=== PATIENT | male | born 1930 | race Caucasian/White ===

== ENCOUNTER 2017-11-17 13:46 | Inpatient (IN) | payer MEDICARE, BC ==
[2017-11-17] MEDS ORDERED: Sodium Chloride 0.9% 1,000 ML IV ONE ×3 (13:57→17:30)
[2017-11-17] MEDS ORDERED: Acetaminophen 325 MG Tab PO ONE (14:06)
--- NOTE | 2017-11-17 14:11 | EDM.PDOC ---
ED HPI GENERAL MEDICAL PROBLEM - General Chief Complaint: General Stated Complaint: AMB Time Seen by Provider: 11/17/17 14:00 Source of Information: Reports: Patient History Limitations: Reports: No Limitations - History of Present Illness INITIAL COMMENTS - FREE TEXT/NARRATIVE: HISTORY AND PHYSICAL: History of present illness: Patient is an 87-year-old male who presents to the emergency room today with complaints of weakness. 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 Today he was complaining of increased weakness and was unable to help assist his with her ADLs. called EMS who transported patient to our emergency room. EMS states that he was drowsy appearing and very weak upon their arrival. Was hypotensive with a BP of 90/50's. He did receive a 500 normal saline bolus enroute and appeared to "perk up" during the drive here. Upon arrival patient is alert and oriented, states he feels improved after receiving the IV fluids. Past medical history of hypertension, elevated cholesterol, coronary artery bipass, and pacemaker. Review of systems: As per history of present illness and below otherwise all systems reviewed and negative. Past medical history: As per history of present illness and as reviewed below otherwise noncontributory. Surgical history: As per history of present illness and as reviewed below otherwise noncontributory. Social history: No reported history of drug or alcohol abuse. Family history: As per history of present illness and as reviewed below otherwise noncontributory. Physical exam: General: Well developed and well nourished 87 year old male. Alert and orientated. Nontoxic-appearing and in no acute distress. HEENT: Atraumatic, normocephalic, pupils equal and reactive bilaterally, negative for conjunctival pallor or scleral icterus, mucous membranes moist, throat clear, neck supple, nontender, trachea midline. No drooling or trismus noted. No meningeal signs Lungs: Clear to auscultation, breath sounds equal bilaterally, chest nontender. Heart: S1S2, regular rate and rhythm without overt murmur Abdomen: Soft, nondistended, nontender. Negative for masses or hepatosplenomegaly. Negative for costovertebral tenderness. Pelvis: Stable nontender. Genitourinary: Deferred. Rectal: Deferred. Skin: Intact, warm, dry. No lesions or rashes noted. Extremities: Atraumatic, negative for cords or calf pain. Neurovascular unremarkable. Neuro: Awake, alert, oriented. Cranial nerves II through XII unremarkable. Cerebellum unremarkable. Motor and sensory unremarkable throughout. Exam nonfocal. Notes: Patient is alert and oriented. Family is at bedside. Patient lives in [place] and is the primary caregiver of his who is wheelchair bound. He reports that he is normally able to help her with her ADLs. Family does routinely check on them. All nursing staff was assisting the patient to stand to obtain a urine sample he does appear weak and requires full assistance. He reports "normally not this week". He does complain that he has had increased difficulty with urination; starting his stream. Urine sample was obtained and sent to lab. Blood pressure remains low, asymptomatic, IV fluids are running. We'll continue to monitor. 1520: WBC 24.75; blood cultures have already been obtained, No clear source at this time - abx ordered. 1540: Urine shows 4-5 wbc's with few bacteria, urine culture added. Chest x-ray shows linear atelectasis at the lung bases. My viewing it looks like an infiltrate of the left lower lobe. Lactic acid results pending. 1545: Dr. Nelson was consulted on this case for admission. He is agreeable to keeping this patient in the ICU for admission. Continue to monitor blood pressure through transfer to ICU bed. Patient's blood pressure remains low; 76/ 40 - will start Norepinephrine IV per protocol. Dr Nelson was informed on this. He is requesting anesthesia be consulted to insert a central line. Anesthesia was consulted. Diagnostics: CBC, CMP, UA, troponin, EKG, one view chest x-ray, blood cultures, urine culture Therapeutics: IV fluids, Zosyn, Vancomycin, Norephinephrine IV Impression: UTI R/O sepsis Hypotension Left lung infiltrate Plan: ICU inpatient for further care/management per Dr Nelson Definitive disposition and diagnosis as appropriate pending reevaluation and review of above. Onset: Today Duration: Hour(s): Treatments TONE ARTIST APPRENTICE: Reports: IV/IO, Oxygen Other Treatments TONE ARTIST APPRENTICE: NS 600 ml - Related Data Allergies Allergy/AdvReac Type Severity Reaction Status Date / Time No Known Allergies Allergy Verified 11/17/17 13:56 Home Meds: Home Meds Atenolol 25 mg PO BEDTIME 11/17/17 [History] Simvastatin [Zocor] 80 mg PO DAILY 11/17/17 [History] ED ROS GENERAL - Review of Systems Review Of Systems: ROS reveals no pertinent complaints other than HPI. ED EXAM, GENERAL - Physical Exam Exam: See Below (See dictation) Course - Vital Signs Last Recorded V/S: Last Vital Signs Temp 101.0 F H 11/17/17 15:15 Pulse 70 11/17/17 16:01 Resp 16 11/17/17 16:01 BP 81/41 L 11/17/17 16:01 Pulse Ox 94 L 11/17/17 16:01 - Orders/Labs/Meds Orders: Active Orders 24 hr Category Date Time Status Admission Status [Patient Status] [ADT] Stat ADT 11/17/17 15:45 Active EKG Documentation Completion [RC] STAT Care 11/17/17 13:57 Active Orthostatic Vital Signs [RC] ASDIRECTED Care 11/17/17 13:57 Active Chest 1V Frontal [CR] Stat Exams 11/17/17 13:57 Taken Head wo Cont [CT] Stat Exams 11/17/17 13:57 Taken CULTURE BLOOD [BC] Stat Lab 11/17/17 14:48 Received CULTURE BLOOD [BC] Stat Lab 11/17/17 15:49 Ordered CULTURE URINE [RM] Stat Lab 11/17/17 15:49 Ordered UA W/MICROSCOPIC [URIN] Stat Lab 11/17/17 15:05 Ordered Norepinephrine Bit/0.9 % NaCl [Norepinephr-0.9% NaCl 4 Med 11/17/17 16:15 Active mg/250] 4 mg in 250 ml IV TITRATE Sodium Chloride 0.9% [Normal Saline] 1,000 ml Med 11/17/17 15:18 Active IV .BOLUS Vancomycin [Vancocin] 1 gm Med 11/17/17 15:22 Active Sodium Chloride 0.9% [Normal Saline] 250 ml IV ONETIME Blood Culture x2 Reflex Set [OM.PC] Stat Oth 11/17/17 15:49 Ordered Medication Orders Sodium Chloride (Normal Saline) 1,000 mls @ 999 mls/hr IV .BOLUS ONE Stop: 11/17/17 16:18 Last Admin: 11/17/17 15:19 Dose: 999 mls/hr Vancomycin HCl 1 gm/ Sodium (Chloride) 250 mls @ 166 mls/hr IV ONETIME ONE Stop: 11/17/17 16:52 Last Admin: 11/17/17 15:49 Dose: 166 mls/hr Norepinephrine Bitartrate (Norepinephr-0.9% Nacl 4 Mg/250) 4 mg in 250 mls @ 7.5 mls/hr IV TITRATE LAN; Protocol Labs: Laboratory Tests 11/17/17 11/17/17 11/17/17 Range/Units 14:48 14:48 15:05 WBC 24.75 H (4.0-11.0) K/uL RBC 4.93 (4.50-5.90) M/uL Hgb 15.1 (13.0-17.0) g/dL Hct 44.5 (38.0-50.0) % MCV 90.3 (80.0-98.0) fL MCH 30.6 (27.0-32.0) pg MCHC 33.9 (31.0-37.0) g/dL RDW Std Deviation 44.4 (28.0-62.0) fl RDW Coeff of Elodia 14 (11.0-15.0) % Plt Count 205 (150-400) K/uL MPV 9.80 (7.40-12.00) fL Neut % (Auto) 89.6 H (48.0-80.0) % Lymph % (Auto) 3.2 L (16.0-40.0) % Schleicher % (Auto) 7.1 (0.0-15.0) % Eos % (Auto) 0.0 (0.0-7.0) % Baso % (Auto) 0.1 (0.0-1.5) % Neut # (Auto) 22.2 H (1.4-5.7) K/uL Lymph # (Auto) 0.8 (0.6-2.4) K/uL Schleicher # (Auto) 1.8 H (0.0-0.8) K/uL Eos # (Auto) 0.0 (0.0-0.7) K/uL Baso # (Auto) 0.0 (0.0-0.1) K/uL Nucleated RBC % 0.0 /100WBC Nucleated RBCs # 0 K/uL Lactate (0.20-2.00) mmol/L Sodium 139 (136-148) mmol/L Potassium 4.2 (3.5-5.1) mmol/L Chloride 105 (98-107) mmol/L Carbon Dioxide 23.7 (21.0-32.0) mmol/L BUN 20 H (7.0-18.0) mg/dL Creatinine 1.3 (0.8-1.3) mg/dL Est Cr Clr Drug Dosing 38.73 mL/min Estimated GFR (MDRD) 52.2 ml/min Glucose 117 H (74-106) mg/dL Calcium 8.8 (8.5-10.1) mg/dL Total Bilirubin 0.9 (0.2-1.0) mg/dL AST 19 (15-37) IU/L ALT 20 (14-63) IU/L Alkaline Phosphatase 29 L (46-116) U/L Troponin I < 0.050 (0.000-0.056) ng/mL Total Protein 6.8 (6.4-8.2) g/dL Albumin 3.3 L (3.4-5.0) g/dL Globulin 3.5 (2.0-3.5) g/dL Albumin/Globulin Ratio 0.9 L (1.3-2.8) Urine Color YELLOW Urine Appearance CLEAR Urine pH 5.5 (5.0-8.0) Ur Specific [place] >= 1.030 (1.001-1.035) Urine Protein TRACE (NEGATIVE) mg/dL Urine Glucose (UA) NEGATIVE (NEGATIVE) mg/dL Urine Ketones 15 H (NEGATIVE) mg/dL Urine Occult Blood LARGE H (NEGATIVE) Urine Nitrite NEGATIVE (NEGATIVE) Urine Bilirubin SMALL H (NEGATIVE) Urine Ictotest NEGATIVE Urine Urobilinogen 1.0 (<2.0) EU/dL Ur Leukocyte Esterase TRACE (NEGATIVE) Urine RBC 15-20 (0-2/HPF) Urine WBC 4-8 (0-5/HPF) Ur Epithelial Cells RARE (NONE-FEW) Urine Bacteria FEW (NEGATIVE) Urine Mucus MODERATE (NONE-MOD) 11/17/17 Range/Units 15:39 WBC (4.0-11.0) K/uL RBC (4.50-5.90) M/uL Hgb (13.0-17.0) g/dL Hct (38.0-50.0) % MCV (80.0-98.0) fL MCH (27.0-32.0) pg MCHC (31.0-37.0) g/dL RDW Std Deviation (28.0-62.0) fl RDW Coeff of Elodia (11.0-15.0) % Plt Count (150-400) K/uL MPV (7.40-12.00) fL Neut % (Auto) (48.0-80.0) % Lymph % (Auto) (16.0-40.0) % Schleicher % (Auto) (0.0-15.0) % Eos % (Auto) (0.0-7.0) % Baso % (Auto) (0.0-1.5) % Neut # (Auto) (1.4-5.7) K/uL Lymph # (Auto) (0.6-2.4) K/uL Schleicher # (Auto) (0.0-0.8) K/uL Eos # (Auto) (0.0-0.7) K/uL Baso # (Auto) (0.0-0.1) K/uL Nucleated RBC % /100WBC Nucleated RBCs # K/uL Lactate 1.2 (0.20-2.00) mmol/L Sodium (136-148) mmol/L Potassium (3.5-5.1) mmol/L Chloride (98-107) mmol/L Carbon Dioxide (21.0-32.0) mmol/L BUN (7.0-18.0) mg/dL Creatinine (0.8-1.3) mg/dL Est Cr Clr Drug Dosing mL/min Estimated GFR (MDRD) ml/min Glucose (74-106) mg/dL Calcium (8.5-10.1) mg/dL Total Bilirubin (0.2-1.0) mg/dL AST (15-37) IU/L ALT (14-63) IU/L Alkaline Phosphatase (46-116) U/L Troponin I (0.000-0.056) ng/mL Total Protein (6.4-8.2) g/dL Albumin (3.4-5.0) g/dL Globulin (2.0-3.5) g/dL Albumin/Globulin Ratio (1.3-2.8) Urine Color Urine Appearance Urine pH (5.0-8.0) Ur Specific [place] (1.001-1.035) Urine Protein (NEGATIVE) mg/dL Urine Glucose (UA) (NEGATIVE) mg/dL Urine Ketones (NEGATIVE) mg/dL Urine Occult Blood (NEGATIVE) Urine Nitrite (NEGATIVE) Urine Bilirubin (NEGATIVE) Urine Ictotest Urine Urobilinogen (<2.0) EU/dL Ur Leukocyte Esterase (NEGATIVE) Urine RBC (0-2/HPF) Urine WBC (0-5/HPF) Ur Epithelial Cells (NONE-FEW) Urine Bacteria (NEGATIVE) Urine Mucus (NONE-MOD) Meds: Medications Generic Name Dose Route Start Last Admin Trade Name Freq PRN Reason Stop Dose Admin Sodium Chloride 1,000 mls @ 999 mls/hr 11/17/17 15:18 11/17/17 15:19 Normal Saline IV 11/17/17 16:18 999 mls/hr .BOLUS ONE Administration Vancomycin HCl 1 gm/ Sodium 250 mls @ 166 mls/hr 11/17/17 15:22 11/17/17 15: 49 Chloride IV 11/17/17 16:52 166 mls/hr ONETIME ONE Administration Norepinephrine Bitartrate 4 mg in 250 mls @ 7.5 mls/hr 11/17/17 16:15 Norepinephr-0.9% Nacl 4 Mg/250 IV TITRATE LAN Protocol 2 MCG/MIN Discontinued Medications Generic Name Dose Route Start Last Admin Trade Name Sarah PRN Reason Stop Dose Admin Acetaminophen 650 mg 11/17/17 14:06 11/17/17 14:34 Tylenol PO 11/17/17 14:07 650 mg NOW ONE Administration Sodium Chloride 1,000 mls @ 500 mls/hr 11/17/17 13:57 11/17/17 14:00 Normal Saline IV 11/17/17 15:56 500 mls/hr STAT ONE Administration Piperacillin Sod/Tazobactam 50 mls @ 100 mls/hr 11/17/17 15:22 11/17/17 15:47 Sod 3.375 gm/ Sodium Chloride IV 11/17/17 15:51 100 mls/hr ONETIME ONE Administration Departure - Departure Time of Disposition: 15:47 Disposition: Admitted As Inpatient 66 Clinical Impression: Pulmonary infiltrate in left lung on chest x-ray UTI (urinary tract infection) Qualifiers: Urinary tract infection type: acute cystitis Hematuria presence: with hematuria Qualified Code(s): N30.01 - Acute cystitis with hematuria Hypotension Qualifiers: Hypotension type: unspecified hypotension type Qualified Code(s): I95.9 - Hypotension, unspecified - Discharge Information Forms: ED Department Discharge - My Orders Last 24 Hours: My Active Orders 11/17/17 13:57 EKG Documentation Completion [RC] STAT Orthostatic Vital Signs [RC] ASDIRECTED Chest 1V Frontal [CR] Stat Head wo Cont [CT] Stat 11/17/17 14:48 CULTURE BLOOD [BC] Stat 11/17/17 15:05 UA W/MICROSCOPIC [URIN] Stat 11/17/17 15:18 Sodium Chloride 0.9% [Normal Saline] 1,000 ml IV .BOLUS 11/17/17 15:22 Vancomycin [Vancocin] 1 gm Sodium Chloride 0.9% [Normal Saline] 250 ml IV ONETIME 11/17/17 15:45 Admission Status [Patient Status] [ADT] Stat 11/17/17 15:49 CULTURE BLOOD [BC] Stat CULTURE URINE [RM] Stat Blood Culture x2 Reflex Set [OM.PC] Stat 11/17/17 16:15 Norepinephrine Bit/0.9 % NaCl [Norepinephr-0.9% NaCl 4 mg/250] 4 mg in 250 ml IV TITRATE - Assessment/Plan Last 24 Hours: My Active Orders 11/17/17 13:57 EKG Documentation Completion [RC] STAT Orthostatic Vital Signs [RC] ASDIRECTED Chest 1V Frontal [CR] Stat Head wo Cont [CT] Stat 11/17/17 14:48 CULTURE BLOOD [BC] Stat 11/17/17 15:05 UA W/MICROSCOPIC [URIN] Stat 11/17/17 15:18 Sodium Chloride 0.9% [Normal Saline] 1,000 ml IV .BOLUS 11/17/17 15:22 Vancomycin [Vancocin] 1 gm Sodium Chloride 0.9% [Normal Saline] 250 ml IV ONETIME 11/17/17 15:45 Admission Status [Patient Status] [ADT] Stat 11/17/17 15:49 CULTURE BLOOD [BC] Stat CULTURE URINE [RM] Stat Blood Culture x2 Reflex Set [OM.PC] Stat 11/17/17 16:15 Norepinephrine Bit/0.9 % NaCl [Norepinephr-0.9% NaCl 4 mg/250] 4 mg in 250 ml IV TITRATE
[2017-11-17] MEDS ORDERED: Piperacillin/Tazobactam 3.375 GM in Sodium Chloride 0.9% 50 ML IV ONE (15:22)
[2017-11-17 15:27] LABS: CHLORIDE,CL 105 mmol/L (98-107); SODIUM,NA 139 mmol/L (136-148)
--- NOTE | 2017-11-17 16:08 | PCM.HP ---
H&P History of Present Illness - General Date of Service: 11/17/17 Admit Problem/Dx: Admission Diagnosis/Problem Admission Diagnosis/Problem UTI, Urinary tract infectious disease Source of Information: Patient, Family History Limitations: Reports: No Limitations - History of Present Illness Initial Comments - Free Text/Narative: 87 yo male with history of CAD, M.I s/p CABG & TV Pacer & HLD is admitted for septic shock. He presented to the ED with weakness that began earlier this morning. His only other associated symptom was feeling warm. Prior to this he denies any other symptoms or recent illnesses and stated he was healthy up until today. He lives at home with his who is wheelchair bound and he takes care of her. He does not have a PCP and has not seen one in 3 years. He does see Dr[address] Ritchie divemaster in [place] and states he last saw him 1-2 years ago. He denies use of tobacco. He denies any recent hospitalizations. In the Ed he presented with fever, bp ranging 60s-90s/40s-60s and was found to have Leukocytosis with WBC count 24k. His UA revealed Trace LE, 4-8 WBC, positive bacteria, + blood. CXR revealed atelectasis with questionable LLL infiltrate. Blood cultures obtained in ED and urine sent for culture He received IV NS 2L in ED, and was started on 3rd L. He was started on Zosyn and Vanco in ED. He received hydrocortisone 100 mg IV single dose. He was started on Levophed and anesthesia was consulted for central line. - Related Data Allergies/Adverse Reactions: Allergies Allergy/AdvReac Type Severity Reaction Status Date / Time No Known Allergies Allergy Verified 11/17/17 13:56 Home Medications: Home Meds Atenolol 25 mg PO BEDTIME 11/17/17 [History] Simvastatin [Zocor] 80 mg PO DAILY 11/17/17 [History] Past Medical History Cardiovascular History: Reports: High Cholesterol, Hypertension - Infectious Disease History Infectious Disease History: Reports: None - Past Surgical History Cardiovascular Surgical History: Reports: Coronary Artery Bypass Social & Family History - Family History Family Medical History: Noncontributory - Tobacco Use Smoking Status *Q: Former Smoker Used Tobacco, but Quit: Yes Month/Year Tobacco Last Used: 1947 - Caffeine Use Caffeine Use: Reports: Coffee - Alcohol Use Days Per Week of Alcohol Use: 1 Number of Drinks Per Day: 1 Total Drinks Per Week: 1 Date of Last Drink: 11/16/17 - Recreational Drug Use Recreational Drug Use: No H&P Review of Systems - Review of Systems: Review Of Systems: See Below General: Reports: Weakness HEENT: Reports: No Symptoms Pulmonary: Reports: No Symptoms Cardiovascular: Reports: No Symptoms Gastrointestinal: Reports: No Symptoms Genitourinary: Reports: No Symptoms Musculoskeletal: Reports: No Symptoms Skin: Reports: No Symptoms Psychiatric: Reports: No Symptoms Neurological: Reports: No Symptoms Hematologic/Lymphatic: Reports: No Symptoms Immunologic: Reports: No Symptoms Exam - Exam Exam: See Below - Vital Signs Vital Signs: Last Vital Signs Temp 38.3 C H 11/17/17 15:15 Pulse 70 11/17/17 16:01 Resp 16 11/17/17 16:01 BP 81/41 L 11/17/17 16:01 Pulse Ox 94 L 11/17/17 16:01 Weight: 79.379 kg - Exam Quality Assessment: Supplemental Oxygen General: Alert, Oriented, Cooperative, Other (no distress ) HEENT: Conjunctiva Clear, EACs Clear, EOMI, Nares Patent, Normal Nasal Septum, Posterior Pharynx Clear, Pupils Equal, Pupils Reactive Neck: Supple, Trachea Midline Lungs: Clear to Auscultation, Normal Respiratory Effort Cardiovascular: Regular Rate, Regular Rhythm GI/Abdominal Exam: Normal Bowel Sounds, Soft, Non-Tender, No Organomegaly, No Distention Back Exam: Normal Inspection Extremities: Normal Inspection, Normal Range of Motion, Non-Tender, No Pedal Edema Peripheral Pulses: 1+: Dorsalis Pedis (L), Dorsalis Pedis (R) Skin: Warm, Dry, Intact Neurological: Cranial Nerves Intact Neuro Extensive - Mental Status: Alert, Oriented x3, Normal Mood/Affect Psychiatric: Alert, Normal Affect, Normal Mood - Patient Data Lab Results Last 24 hrs: Laboratory Results - last 24 hr 11/17/17 11/17/17 11/17/17 Range/Units 14:48 14:48 15:05 WBC 24.75 H (4.0-11.0) K/uL RBC 4.93 (4.50-5.90) M/uL Hgb 15.1 (13.0-17.0) g/dL Hct 44.5 (38.0-50.0) % MCV 90.3 (80.0-98.0) fL MCH 30.6 (27.0-32.0) pg MCHC 33.9 (31.0-37.0) g/dL RDW Std Deviation 44.4 (28.0-62.0) fl RDW Coeff of Elodia 14 (11.0-15.0) % Plt Count 205 (150-400) K/uL MPV 9.80 (7.40-12.00) fL Neut % (Auto) 89.6 H (48.0-80.0) % Lymph % (Auto) 3.2 L (16.0-40.0) % Brooke % (Auto) 7.1 (0.0-15.0) % Eos % (Auto) 0.0 (0.0-7.0) % Baso % (Auto) 0.1 (0.0-1.5) % Neut # (Auto) 22.2 H (1.4-5.7) K/uL Lymph # (Auto) 0.8 (0.6-2.4) K/uL Brooke # (Auto) 1.8 H (0.0-0.8) K/uL Eos # (Auto) 0.0 (0.0-0.7) K/uL Baso # (Auto) 0.0 (0.0-0.1) K/uL Nucleated RBC % 0.0 /100WBC Nucleated RBCs # 0 K/uL Lactate (0.20-2.00) mmol/L Sodium 139 (136-148) mmol/L Potassium 4.2 (3.5-5.1) mmol/L Chloride 105 (98-107) mmol/L Carbon Dioxide 23.7 (21.0-32.0) mmol/L BUN 20 H (7.0-18.0) mg/dL Creatinine 1.3 (0.8-1.3) mg/dL Est Cr Clr Drug Dosing 38.73 mL/min Estimated GFR (MDRD) 52.2 ml/min Glucose 117 H (74-106) mg/dL Calcium 8.8 (8.5-10.1) mg/dL Total Bilirubin 0.9 (0.2-1.0) mg/dL AST 19 (15-37) IU/L ALT 20 (14-63) IU/L Alkaline Phosphatase 29 L (46-116) U/L Troponin I < 0.050 (0.000-0.056) ng/mL Total Protein 6.8 (6.4-8.2) g/dL Albumin 3.3 L (3.4-5.0) g/dL Globulin 3.5 (2.0-3.5) g/dL Albumin/Globulin Ratio 0.9 L (1.3-2.8) Urine Color YELLOW Urine Appearance CLEAR Urine pH 5.5 (5.0-8.0) Ur Specific [place] >= 1.030 (1.001-1.035) Urine Protein TRACE (NEGATIVE) mg/dL Urine Glucose (UA) NEGATIVE (NEGATIVE) mg/dL Urine Ketones 15 H (NEGATIVE) mg/dL Urine Occult Blood LARGE H (NEGATIVE) Urine Nitrite NEGATIVE (NEGATIVE) Urine Bilirubin SMALL H (NEGATIVE) Urine Ictotest NEGATIVE Urine Urobilinogen 1.0 (<2.0) EU/dL Ur Leukocyte Esterase TRACE (NEGATIVE) Urine RBC 15-20 (0-2/HPF) Urine WBC 4-8 (0-5/HPF) Ur Epithelial Cells RARE (NONE-FEW) Urine Bacteria FEW (NEGATIVE) Urine Mucus MODERATE (NONE-MOD) 11/17/17 Range/Units 15:39 WBC (4.0-11.0) K/uL RBC (4.50-5.90) M/uL Hgb (13.0-17.0) g/dL Hct (38.0-50.0) % MCV (80.0-98.0) fL MCH (27.0-32.0) pg MCHC (31.0-37.0) g/dL RDW Std Deviation (28.0-62.0) fl RDW Coeff of [place]odia (11.0-15.0) % Plt Count (150-400) K/uL MPV (7.40-12.00) fL Neut % (Auto) (48.0-80.0) % Lymph % (Auto) (16.0-40.0) % Brooke % (Auto) (0.0-15.0) % Eos % (Auto) (0.0-7.0) % Baso % (Auto) (0.0-1.5) % Neut # (Auto) (1.4-5.7) K/uL Lymph # (Auto) (0.6-2.4) K/uL Brooke # (Auto) (0.0-0.8) K/uL Eos # (Auto) (0.0-0.7) K/uL Baso # (Auto) (0.0-0.1) K/uL Nucleated RBC % /100WBC Nucleated RBCs # K/uL Lactate 1.2 (0.20-2.00) mmol/L Sodium (136-148) mmol/L Potassium (3.5-5.1) mmol/L Chloride (98-107) mmol/L Carbon Dioxide (21.0-32.0) mmol/L BUN (7.0-18.0) mg/dL Creatinine (0.8-1.3) mg/dL Est Cr Clr Drug Dosing mL/min Estimated GFR (MDRD) ml/min Glucose (74-106) mg/dL Calcium (8.5-10.1) mg/dL Total Bilirubin (0.2-1.0) mg/dL AST (15-37) IU/L ALT (14-63) IU/L Alkaline Phosphatase (46-116) U/L Troponin I (0.000-0.056) ng/mL Total Protein (6.4-8.2) g/dL Albumin (3.4-5.0) g/dL Globulin (2.0-3.5) g/dL Albumin/Globulin Ratio (1.3-2.8) Urine Color Urine Appearance Urine pH (5.0-8.0) Ur Specific [place] (1.001-1.035) Urine Protein (NEGATIVE) mg/dL Urine Glucose (UA) (NEGATIVE) mg/dL Urine Ketones (NEGATIVE) mg/dL Urine Occult Blood (NEGATIVE) Urine Nitrite (NEGATIVE) Urine Bilirubin (NEGATIVE) Urine Ictotest Urine Urobilinogen (<2.0) EU/dL Ur Leukocyte Esterase (NEGATIVE) Urine RBC (0-2/HPF) Urine WBC (0-5/HPF) Ur Epithelial Cells (NONE-FEW) Urine Bacteria (NEGATIVE) Urine Mucus (NONE-MOD) Result Diagrams: 11/17/17 14:48 11/17/17 15:39 Problem List Initiated/Reviewed/Updated: Yes Orders Last 24hrs: Active Orders 24 hr Category Date Time Status Admission Status [Patient Status] [ADT] Stat ADT 11/17/17 15:45 Active EKG Documentation Completion [RC] STAT Care 11/17/17 13:57 Active Orthostatic Vital Signs [RC] ASDIRECTED Care 11/17/17 13:57 Active Chest 1V Frontal [CR] Stat Exams 11/17/17 13:57 Taken Head wo Cont [CT] Stat Exams 11/17/17 13:57 Taken CULTURE BLOOD [BC] Stat Lab 11/17/17 14:48 Received CULTURE BLOOD [BC] Stat Lab 11/17/17 15:39 Received CULTURE URINE [RM] Stat Lab 11/17/17 15:15 Received UA W/MICROSCOPIC [URIN] Stat Lab 11/17/17 15:05 Ordered Sodium Chloride 0.9% [Normal Saline] 1,000 ml Med 11/17/17 15:18 Active IV .BOLUS Vancomycin [Vancocin] 1 gm Med 11/17/17 15:22 Active Sodium Chloride 0.9% [Normal Saline] 250 ml IV ONETIME Blood Culture x2 Reflex Set [OM.PC] Stat Oth 11/17/17 15:49 Ordered Medication Orders Sodium Chloride (Normal Saline) 1,000 mls @ 999 mls/hr IV .BOLUS ONE Stop: 11/17/17 16:18 Last Admin: 11/17/17 15:19 Dose: 999 mls/hr Vancomycin HCl 1 gm/ Sodium (Chloride) 250 mls @ 166 mls/hr IV ONETIME ONE Stop: 11/17/17 16:52 Last Admin: 11/17/17 15:49 Dose: 166 mls/hr Assessment/Plan Comment:: 87 yo male with histroy of CAD, M.I s/p CABG & TV Pacer and HLD admitted for Septic Shock. Source of infection unconfirmed but possible etiologies include UTI and Pneumonia #Septic Shock #Leukocytosis #Fever #Weakness -BP ranging 60s-80s/40s-50s, MAP 60-65 -Lactic Acid 1.3 -WBC 24.75, Nphils 89 -Kidney function: BUN 20, Cr 1.3, GFR 52.2, CrCl 38 -UA: Trace LE, 4-8 WBC, positive bacteria, + blood -CXR reveals atelectasis with questionable LLL infiltrate -Blood cultures obtained in ED, urine sent for culture -received IV NS 2L in ED, currently on 3rd L -started on Zosyn and Vanco in ED -received hydrocortisone 100 mg IV single dose -started on Levophed in ED -on Plan: -admit ICU, cardiac monitoring, pulse ox -Continue Zosyn and Vancomycin, add Levaquin 750 mg Q48H to cover for Pneumonia -consult anesthesia for central line -strict I&O's -continue Levophed and IV NS to maintain MAP>65 -obtain ESR and CRP -CT Chest, abdomen, pelvis with contrast to locate source of infection -Duonebs PRN for SOB -F/U BC and UC #PMH CAD & M.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
[2017-11-17] MEDS ORDERED: Hydrocortisone Sodium Succinate 100 MG/2 ML SDV IVPUSH ONE (16:14)
[2017-11-17] MEDS ORDERED: Ondansetron 4 MG Tab.DIS PO PRN (16:43)
[2017-11-17] MEDS ORDERED: Acetaminophen 325 MG Tab PO PRN (16:43)
[2017-11-17] MEDS ORDERED: Docusate Sodium 100 MG Cap PO PRN (16:43)
[2017-11-17] MEDS ORDERED: Albuterol/Ipratropium 3.0-0.5 MG/3 ML Neb Soln NEB PRN (16:43)
[2017-11-17] MEDS ORDERED: Heparin Sodium 5,000 Units/ML Vial SUBCUT SCH (16:45)
[2017-11-17] MEDS ORDERED: Sodium Chloride 0.9% 1,000 ML IV SCH (16:45)
[2017-11-17] MEDS ORDERED: fentaNYL 100 MCG/2 ML SDV ONE (17:38)
--- NOTE | 2017-11-17 18:14 | PCM.SN ---
- Free Text/Narrative Note: Consulted by Dr Nelson for CVL and arterial line placement Informed consent was obtained from the patient for both procedures, risks and benefits were explained including but not limited: bleeding, infection, nerve damage, pneumothorax, and pain. Pt understands and wishes to proceed at this time. Arterial Line Rt radial wrist was prepped and draped in sterile fashion with chlor-prep and sterile towels. Rt radial artery was palpated, 20g Arrow catheter was then introduced into the artery. Guide wire advanced without difficulty and catheter slide into place without difficulty. Catheter was then transduced and shows good arterial waveform. Catheter was then secured with tape and tegaderm. VSS throughout placement and patient tolerated placement well. Central Venous Line Placement CVL placement for hemodynamic monitoring and vasoactive medication administration. A timeout was completed, verifying correct patient, procedure, and site. The patient was placed in mild head down position. The patients right chest was prepped with chlor prep and draped in sterile fashion. 1% Lidocaine was then infiltrated below the right clavicle. A 7 Chinese triple lumen central venous catheter was then advanced into the Rt subclavian vein using Sledinger technique. The catheter threaded easily over the guidewire and non-pulsatile blood return was obtained. All three ports were aspirated with dark blood return and then flushed. Catheter was then sutured in place at 18 cm and secured with Biopatch and tegaderm. Fentanyl 50mcg IV x1 was given for procedure sedation. Patient tolerated placement well. VSS at this time. No apparent complications. CXR per Dr Garcia read - shows Rt side CVC with catheter in the distal SVC.
[2017-11-17] MEDS: Levofloxacin/Dextrose 5%-Water 750 MG in Premix Bag 1 BAG IV SCH (18:16)
[2017-11-17] MEDS ORDERED: fentaNYL 250 MCG/5 ML SDV IVPUSH ONE (18:21)
[2017-11-17] MEDS ORDERED: Iopamidol 755 MG/ML 200 ML Multipack Bottle IVPUSH STA (18:54)
[2017-11-17] MEDS: Sodium Chloride 0.9% 1,000 ML IV SCH (21:18)
[2017-11-17] MEDS: Piperacillin/Tazobactam 3.375 GM in Sodium Chloride 0.9% 50 ML IV SCH (22:14)
[2017-11-18] MEDS: Heparin Sodium 5,000 Units/ML Vial SUBCUT SCH ×2 (04:00→11:06)
[2017-11-18] MEDS: Piperacillin/Tazobactam 3.375 GM in Sodium Chloride 0.9% 50 ML IV SCH ×3 (04:00→14:43)
[2017-11-18 06:20] LABS: CHLORIDE,CL 109 mmol/L (98-107); SODIUM,NA 139 mmol/L (136-148)
[2017-11-18] MEDS ORDERED: Magnesium Sulfate/Water 2 GM in Premix Bag 1 BAG IV ONE (07:06)
--- NOTE | 2017-11-18 08:27 | PCM.PN ---
- General Info Date of Service: 11/18/17 Admission Dx/Problem (Free Text): Admission Diagnosis/Problem Admission Diagnosis/Problem UTI, Urinary tract infectious disease Subjective Update: Patient doing better. Has no complaints or concerns. Does state that he has had multiple episodes of viral pneumonia in the past. Functional Status: Reports: Pain Controlled, Tolerating Diet, Urinating - Review of Systems General: Reports: No Symptoms HEENT: Reports: No Symptoms Pulmonary: Reports: No Symptoms Cardiovascular: Reports: No Symptoms Gastrointestinal: Reports: No Symptoms Genitourinary: Reports: No Symptoms Musculoskeletal: Reports: No Symptoms Skin: Reports: No Symptoms Neurological: Reports: No Symptoms Psychiatric: Reports: No Symptoms - Patient Data Vitals - Most Recent: Last Vital Signs Temp 37.3 C 11/18/17 08:00 Pulse 71 11/17/17 16:20 Resp 15 11/18/17 08:00 BP 109/51 L 11/18/17 08:00 Pulse Ox 94 L 11/18/17 08:00 Weight - Most Recent: 79.379 kg I&O - Last 24 Hours: Intake & Output 11/17/17 11/18/17 11/18/17 22:59 06:59 14:59 Intake Total 3050 1188 Output Total 700 Balance 3050 488 Lab Results Last 24 Hours: Laboratory Results - last 24 hr 11/17/17 11/17/17 11/17/17 Range/Units 14:48 14:48 15:05 WBC 24.75 H (4.0-11.0) K/uL RBC 4.93 (4.50-5.90) M/uL Hgb 15.1 (13.0-17.0) g/dL Hct 44.5 (38.0-50.0) % MCV 90.3 (80.0-98.0) fL MCH 30.6 (27.0-32.0) pg MCHC 33.9 (31.0-37.0) g/dL RDW Std Deviation 44.4 (28.0-62.0) fl RDW Coeff of Elodia 14 (11.0-15.0) % Plt Count 205 (150-400) K/uL MPV 9.80 (7.40-12.00) fL Neut % (Auto) 89.6 H (48.0-80.0) % Lymph % (Auto) 3.2 L (16.0-40.0) % [place] % (Auto) 7.1 (0.0-15.0) % Eos % (Auto) 0.0 (0.0-7.0) % Baso % (Auto) 0.1 (0.0-1.5) % Neut # (Auto) 22.2 H (1.4-5.7) K/uL Lymph # (Auto) 0.8 (0.6-2.4) K/uL [place] # (Auto) 1.8 H (0.0-0.8) K/uL Eos # (Auto) 0.0 (0.0-0.7) K/uL Baso # (Auto) 0.0 (0.0-0.1) K/uL Nucleated RBC % 0.0 /100WBC Nucleated RBCs # 0 K/uL ESR (0-19) mm/hr ABG pH (7.35-7.45) ABG pCO2 (35-45) mmHG ABG pO2 (75-100) mmHG ABG HCO3 (22-26) mEq/L ABG Total CO2 ABG Base Excess (-2.0-2.0) Lactate (0.20-2.00) mmol/L Sodium 139 (136-148) mmol/L Potassium 4.2 (3.5-5.1) mmol/L Chloride 105 (98-107) mmol/L Carbon Dioxide 23.7 (21.0-32.0) mmol/L BUN 20 H (7.0-18.0) mg/dL Creatinine 1.3 (0.8-1.3) mg/dL Est Cr Clr Drug Dosing 38.73 mL/min Estimated GFR (MDRD) 52.2 ml/min Glucose 117 H (74-106) mg/dL Calcium 8.8 (8.5-10.1) mg/dL Magnesium (1.5-2.0) mg/dL Total Bilirubin 0.9 (0.2-1.0) mg/dL AST 19 (15-37) IU/L ALT 20 (14-63) IU/L Alkaline Phosphatase 29 L (46-116) U/L Troponin I < 0.050 (0.000-0.056) ng/mL C-Reactive Protein (0.00-0.90) mg/dL Total Protein 6.8 (6.4-8.2) g/dL Albumin 3.3 L (3.4-5.0) g/dL Globulin 3.5 (2.0-3.5) g/dL Albumin/Globulin Ratio 0.9 L (1.3-2.8) Urine Color YELLOW Urine Appearance CLEAR Urine pH 5.5 (5.0-8.0) Ur Specific [place] >= 1.030 (1.001-1.035) Urine Protein TRACE (NEGATIVE) mg/dL Urine Glucose (UA) NEGATIVE (NEGATIVE) mg/dL Urine Ketones 15 H (NEGATIVE) mg/dL Urine Occult Blood LARGE H (NEGATIVE) Urine Nitrite NEGATIVE (NEGATIVE) Urine Bilirubin SMALL H (NEGATIVE) Urine Ictotest NEGATIVE Urine Urobilinogen 1.0 (<2.0) EU/dL Ur Leukocyte Esterase TRACE (NEGATIVE) Urine RBC 15-20 (0-2/HPF) Urine WBC 4-8 (0-5/HPF) Ur Epithelial Cells RARE (NONE-FEW) Urine Bacteria FEW (NEGATIVE) Urine Mucus MODERATE (NONE-MOD) 11/17/17 11/17/17 11/17/17 Range/Units 15:39 15:39 20:45 WBC (4.0-11.0) K/uL RBC (4.50-5.90) M/uL Hgb (13.0-17.0) g/dL Hct (38.0-50.0) % MCV (80.0-98.0) fL MCH (27.0-32.0) pg MCHC (31.0-37.0) g/dL RDW Std Deviation (28.0-62.0) fl RDW Coeff of [place]odia (11.0-15.0) % Plt Count (150-400) K/uL MPV (7.40-12.00) fL Neut % (Auto) (48.0-80.0) % Lymph % (Auto) (16.0-40.0) % [place] % (Auto) (0.0-15.0) % Eos % (Auto) (0.0-7.0) % Baso % (Auto) (0.0-1.5) % Neut # (Auto) (1.4-5.7) K/uL Lymph # (Auto) (0.6-2.4) K/uL [place] # (Auto) (0.0-0.8) K/uL Eos # (Auto) (0.0-0.7) K/uL Baso # (Auto) (0.0-0.1) K/uL Nucleated RBC % /100WBC Nucleated RBCs # K/uL ESR (0-19) mm/hr ABG pH 7.388 (7.35-7.45) ABG pCO2 32 L (35-45) mmHG ABG pO2 72 L (75-100) mmHG ABG HCO3 19 L (22-26) mEq/L ABG Total CO2 17.0 ABG Base Excess -4.9 L (-2.0-2.0) Lactate 1.2 (0.20-2.00) mmol/L Sodium 139 (136-148) mmol/L Potassium 4.1 (3.5-5.1) mmol/L Chloride 107 (98-107) mmol/L Carbon Dioxide 22.3 (21.0-32.0) mmol/L BUN 20 H (7.0-18.0) mg/dL Creatinine 1.2 (0.8-1.3) mg/dL Est Cr Clr Drug Dosing 41.96 mL/min Estimated GFR (MDRD) 57.3 ml/min Glucose 114 H (74-106) mg/dL Calcium 8.0 L (8.5-10.1) mg/dL Magnesium (1.5-2.0) mg/dL Total Bilirubin 0.8 (0.2-1.0) mg/dL AST 21 (15-37) IU/L ALT 15 (14-63) IU/L Alkaline Phosphatase 23 L (46-116) U/L Troponin I (0.000-0.056) ng/mL C-Reactive Protein 8.40 H (0.00-0.90) mg/dL Total Protein 5.9 L (6.4-8.2) g/dL Albumin 2.8 L (3.4-5.0) g/dL Globulin 3.1 (2.0-3.5) g/dL Albumin/Globulin Ratio 0.9 L (1.3-2.8) Urine Color Urine Appearance Urine pH (5.0-8.0) Ur Specific [place] (1.001-1.035) Urine Protein (NEGATIVE) mg/dL Urine Glucose (UA) (NEGATIVE) mg/dL Urine Ketones (NEGATIVE) mg/dL Urine Occult Blood (NEGATIVE) Urine Nitrite (NEGATIVE) Urine Bilirubin (NEGATIVE) Urine Ictotest Urine Urobilinogen (<2.0) EU/dL Ur Leukocyte Esterase (NEGATIVE) Urine RBC (0-2/HPF) Urine WBC (0-5/HPF) Ur Epithelial Cells (NONE-FEW) Urine Bacteria (NEGATIVE) Urine Mucus (NONE-MOD) 11/18/17 11/18/17 11/18/17 Range/Units 05:29 05:29 05:29 WBC 14.47 H (4.0-11.0) K/uL RBC 4.22 L (4.50-5.90) M/uL Hgb 12.6 L (13.0-17.0) g/dL Hct 37.7 L (38.0-50.0) % MCV 89.3 (80.0-98.0) fL MCH 29.9 (27.0-32.0) pg MCHC 33.4 (31.0-37.0) g/dL RDW Std Deviation 43.7 (28.0-62.0) fl RDW Coeff of Elodia 13 (11.0-15.0) % Plt Count 176 (150-400) K/uL MPV 9.90 (7.40-12.00) fL Neut % (Auto) 88.0 H (48.0-80.0) % Lymph % (Auto) 4.6 L (16.0-40.0) % [place] % (Auto) 7.3 (0.0-15.0) % Eos % (Auto) 0.0 (0.0-7.0) % Baso % (Auto) 0.1 (0.0-1.5) % Neut # (Auto) 12.8 H (1.4-5.7) K/uL Lymph # (Auto) 0.7 (0.6-2.4) K/uL [place] # (Auto) 1.1 H (0.0-0.8) K/uL Eos # (Auto) 0.0 (0.0-0.7) K/uL Baso # (Auto) 0.0 (0.0-0.1) K/uL Nucleated RBC % 0.0 /100WBC Nucleated RBCs # 0 K/uL ESR 6 (0-19) mm/hr ABG pH (7.35-7.45) ABG pCO2 (35-45) mmHG ABG pO2 (75-100) mmHG ABG HCO3 (22-26) mEq/L ABG Total CO2 ABG Base Excess (-2.0-2.0) Lactate (0.20-2.00) mmol/L Sodium 139 (136-148) mmol/L Potassium 3.6 (3.5-5.1) mmol/L Chloride 109 H (98-107) mmol/L Carbon Dioxide 21.7 (21.0-32.0) mmol/L BUN 17 (7.0-18.0) mg/dL Creatinine 1.0 (0.8-1.3) mg/dL Est Cr Clr Drug Dosing TNP mL/min Estimated GFR (MDRD) > 60.0 ml/min Glucose 119 H (74-106) mg/dL Calcium 7.5 L (8.5-10.1) mg/dL Magnesium 1.4 L (1.5-2.0) mg/dL Total Bilirubin 0.5 (0.2-1.0) mg/dL AST 23 (15-37) IU/L ALT 22 (14-63) IU/L Alkaline Phosphatase 16 L (46-116) U/L Troponin I (0.000-0.056) ng/mL C-Reactive Protein 15.50 H (0.00-0.90) mg/dL Total Protein 5.2 L (6.4-8.2) g/dL Albumin 2.3 L (3.4-5.0) g/dL Globulin 2.9 (2.0-3.5) g/dL Albumin/Globulin Ratio 0.8 L (1.3-2.8) Urine Color Urine Appearance Urine pH (5.0-8.0) Ur Specific [place] (1.001-1.035) Urine Protein (NEGATIVE) mg/dL Urine Glucose (UA) (NEGATIVE) mg/dL Urine Ketones (NEGATIVE) mg/dL Urine Occult Blood (NEGATIVE) Urine Nitrite (NEGATIVE) Urine Bilirubin (NEGATIVE) Urine Ictotest Urine Urobilinogen (<2.0) EU/dL Ur Leukocyte Esterase (NEGATIVE) Urine RBC (0-2/HPF) Urine WBC (0-5/HPF) Ur Epithelial Cells (NONE-FEW) Urine Bacteria (NEGATIVE) Urine Mucus (NONE-MOD) Med Orders - Current: Current Medications Acetaminophen (Tylenol) 650 mg PO Q4H PRN PRN Reason: Pain (Mild 1-3)/fever Albuterol/Ipratropium (Duoneb 3.0-0.5 Mg/3 Ml) 3 ml NEB Q4HRRT PRN PRN Reason: Shortness Of Breath/wheezing Docusate Sodium (Colace) 100 mg PO BID PRN PRN Reason: Constipation Heparin Sodium (Porcine) (Heparin Sodium) 5,000 units SUBCUT Q8H [facility] Last Admin: 11/18/17 04:00 Dose: 5,000 units Norepinephrine Bitartrate 4 mg (/ Sodium Chloride) 250 mls @ 7.5 mls/hr IV TITRATE LAN; Protocol Last Titration: 11/18/17 05:43 Dose: 1 mcg/min, 3.75 mls/hr Sodium Chloride (Normal Saline) 1,000 mls @ 5 mls/hr IV ASDIRECTED [facility] Levofloxacin/Dextrose 750 mg/ (Premix) 150 mls @ 100 mls/hr IV Q48H [facility] Last Admin: 11/17/17 18:16 Dose: 100 mls/hr Piperacillin Sod/Tazobactam (Sod 3.375 gm/ Sodium Chloride) 50 mls @ 100 mls/ hr IV Q6H [facility] Last Admin: 11/18/17 04:00 Dose: 100 mls/hr Vancomycin HCl 1,000 mg/ (Dextrose/Water) 250 mls @ 166.667 mls/hr IV Q24H [facility] Sodium Chloride (Normal Saline) 1,000 mls @ 75 mls/hr IV ASDIRECTED [facility] Last Admin: 11/17/17 21:18 Dose: 75 mls/hr Ondansetron HCl (Zofran Odt) 4 mg PO Q4H PRN PRN Reason: nausea, able to take PO Pantoprazole Sodium (Protonix Iv) 40 mg IVPUSH DAILY [facility] Vancomycin HCl (Pharmacy To Dose - Vancomycin) 1 dose .XX ASDIRECTED [facility] Discontinued Medications Acetaminophen (Tylenol) 650 mg PO NOW ONE Stop: 11/17/17 14:07 Last Admin: 11/17/17 14:34 Dose: 650 mg Fentanyl (Sublimaze) Confirm Administered Dose 100 mcg .ROUTE .STK-MED ONE Stop: 11/17/17 17:39 Last Admin: 11/17/17 17:40 Dose: 100 mcg Fentanyl (Sublimaze) 50 mcg IVPUSH ONETIME ONE Stop: 11/17/17 18:22 Last Admin: 11/17/17 19:52 Dose: Not Given Heparin Sodium (Porcine) (Heparin Sodium) 5,000 units SUBCUT Q8H [facility] Last Admin: 11/17/17 19:50 Dose: 5,000 units Hydrocortisone Sodium Succinate (Solu-Cortef) 100 mg IVPUSH ONETIME ONE Stop: 11/17/17 16:15 Last Admin: 11/17/17 16:20 Dose: 100 mg Sodium Chloride (Normal Saline) 1,000 mls @ 500 mls/hr IV STAT ONE Stop: 11/17/17 15:56 Last Admin: 11/17/17 14:00 Dose: 500 mls/hr Sodium Chloride (Normal Saline) 1,000 mls @ 999 mls/hr IV .BOLUS ONE Stop: 11/17/17 16:18 Last Admin: 11/17/17 15:19 Dose: 999 mls/hr Piperacillin Sod/Tazobactam (Sod 3.375 gm/ Sodium Chloride) 50 mls @ 100 mls/ hr IV ONETIME ONE Stop: 11/17/17 15:51 Last Admin: 11/17/17 15:47 Dose: 100 mls/hr Vancomycin HCl 1 gm/ Sodium (Chloride) 250 mls @ 166 mls/hr IV ONETIME ONE Stop: 11/17/17 16:52 Last Admin: 11/17/17 15:49 Dose: 166 mls/hr Norepinephrine Bitartrate (Norepinephr-0.9% Nacl 4 Mg/250) 4 mg in 250 mls @ 7.5 mls/hr IV TITRATE LAN; Protocol Last Titration: 11/17/17 16:55 Dose: 6 mcg/min, 22.5 mls/hr Sodium Chloride (Normal Saline) 1,000 mls @ 999 mls/hr IV ONETIME ONE Stop: 11/17/17 18:30 Last Infusion: 11/17/17 18:00 Dose: 250 mls/hr Magnesium Sulfate 2 gm/ Premix 50 mls @ 50 mls/hr IV ONETIME ONE Stop: 11/18/17 08:05 Last Admin: 11/18/17 07:24 Dose: 50 mls/hr Iopamidol (Isovue Multipack-370 (76%)) 200 ml IVPUSH ONETIME STA Stop: 11/17/17 18:55 Last Admin: 11/17/17 18:55 Dose: 100 ml - Exam Quality Assessment: Supplemental Oxygen General: Alert, Oriented, Cooperative, No Acute Distress HEENT: Pupils Equal, Pupils Reactive Neck: Supple Lungs: Clear to Auscultation, Normal Respiratory Effort Cardiovascular: Regular Rate, Regular Rhythm GI/Abdominal Exam: Normal Bowel Sounds, Soft, Non-Tender Extremities: Normal Inspection, Normal Range of Motion, Non-Tender, No Pedal Edema Peripheral Pulses: 1+: Dorsalis Pedis (L), Dorsalis Pedis (R) Skin: Warm, Dry, Intact Neurological: No New Focal Deficit Psy/Mental Status: Alert, Normal Affect, Normal Mood - Problem List Review Problem List Initiated/Reviewed/Updated: Yes - My Orders Last 24 Hours: My Active Orders 11/17/17 16:43 Patient Status [ADT] Routine Bedrest Bedside Commode [RC] ASDIRECTED Height and Weight [RC] DAILY Oxygen Therapy [RC] PRN Vital Signs [RC] Q1H Abdomen Pelvis w Cont [CT] Routine Chest w Cont [CT] Routine Acetaminophen [Tylenol] 650 mg PO Q4H PRN Albuterol/Ipratropium [DuoNeb 3.0-0.5 MG/3 ML] 3 ml NEB Q4HRRT PRN Docusate Sodium [Colace] 100 mg PO BID PRN Ondansetron [Zofran ODT] 4 mg PO Q4H PRN 11/17/17 16:45 Levofloxacin/Dextrose 5%-Water [Levaquin in D5W 750 MG/150 ML] 750 mg Premix Bag 1 bag IV Q48H 11/17/17 16:46 Cardiac Monitoring [RC] Q8H Intake and Output [RC] Q12H Pulse Oximetry [RC] CONTINUOUS 11/17/17 16:47 Sequential Compression Device [OM.PC] Per Unit Routine 11/17/17 21:30 Piperacillin/Tazobactam [Piperacil-Tazobact] 3.375 gm Sodium Chloride 0.9% [ Normal Saline] 50 ml IV Q6H 11/18/17 04:00 Heparin Sodium 5,000 units SUBCUT Q8H 11/18/17 08:15 CULTURE SPUTUM + SMEAR [RM] Routine 11/18/17 09:00 Pantoprazole [ProTONIX IV] 40 mg IVPUSH DAILY 11/18/17 14:00 Vancomycin Pharmacy to Dose [Pharmacy to Dose - Vancomycin] 1 dose .XX ASDIRECTED 11/19/17 05:11 CBC WITH AUTO DIFF [HEME] AM CMP [COMPREHENSIVE METABOLIC PN,CMP] [CHEM] DAILY 11/20/17 05:11 CBC WITH AUTO DIFF [HEME] AM CMP [COMPREHENSIVE METABOLIC PN,CMP] [CHEM] DAILY 11/21/17 05:11 CBC WITH AUTO DIFF [HEME] AM CMP [COMPREHENSIVE METABOLIC PN,CMP] [CHEM] DAILY 11/22/17 05:11 CBC WITH AUTO DIFF [HEME] AM CMP [COMPREHENSIVE METABOLIC PN,CMP] [CHEM] DAILY 11/23/17 05:11 CBC WITH AUTO DIFF [HEME] AM CMP [COMPREHENSIVE METABOLIC PN,CMP] [CHEM] DAILY 11/24/17 05:11 CBC WITH AUTO DIFF [HEME] AM CMP [COMPREHENSIVE METABOLIC PN,CMP] [CHEM] DAILY 11/25/17 05:11 CBC WITH AUTO DIFF [HEME] AM 11/26/17 05:11 CBC WITH AUTO DIFF [HEME] AM 11/27/17 05:11 CBC WITH AUTO DIFF [HEME] AM - Plan Plan:: 87 yo male with histroy of CAD, M.I s/p CABG & TV Pacer and HLD admitted for Septic Shock. Source of infection unconfirmed but possible etiologies include UTI and Pneumonia #Septic Shock #Acute Hypoxic Respiratory Failure, on 2L O2 #Leukocytosis, improving #Fever, resolved #Elevated CRP #Weakness, improved -SBP 90-100, MAP 64 -WBC 14k, CRP 15.5 -Kidney function: BUN 17, Cr 1.0, GFR >60 -UA: Trace LE, 4-8 WBC, positive bacteria, + blood -CXR reveals atelectasis with questionable LLL infiltrate -CT chest equivocal, reveals small nodular opacities in the upper lobes bilaterally & Minimal linear atelectasis at both lung bases. -CT abdomen-pelvis reveals borderline right iliac chain adenopathy of unknown etiology otherwise noncontributory -BC NGTD, UC pending -on Zosyn, Levaquin and Vanco -received hydrocortisone 100 mg IV single dose -currently on Levophed Plan: -Continue Zosyn and Vancomycin and Levaquin - will de-escalate pending preliminary culture results -continue Levophed to maintain SBP over 90 -continue IVF at 75 ml/hour -Duonebs PRN for SOB -F/U BC and UC #PMH CAD & M.I s/p CABG & TV Pacer #HLD -on Simvastatin 80 mg QD & Atenolol at home -resume Simvastatin and hold Atenolol DVT Prophylaxis: Heparin Diet: NPO pending imaging Code: Full GI Prophylaxis: Protonix
[2017-11-18] MEDS ORDERED: Pantoprazole 40 MG Vial IVPUSH SCH (09:00)
[2017-11-18] MEDS: Sodium Chloride 0.9% 1,000 ML IV SCH (11:46)
--- NOTE | 2017-11-18 13:41 | CT ---
EXAM DATE: 11/17/17 PATIENT'S AGE: 87 Patient: BARBARA HUNTER Facility: [place], [place] Site . Site : 1930 Study: CT Head [id number]/3/2018 2:25:55 PM Ordering Physician: Doctor Bird Final Report: HISTORY: Weakness. TECHNIQUE: Noncontrast head CT. COMPARISON: No prior. FINDINGS: There is no acute intracranial hemorrhage or acute ischemic infarct. Areas of white matter low attenuation are nonspecific but likely reflect sequelae of mild chronic small vessel ischemic changes. There is no mass effect or midline shift. Mild prominence of the ventricular system likely relates to central white matter volume loss. No extra-axial collection or hematoma. No acute loss of rice-white differentiation. The mastoid air cells are clear. Mucosal thickening involving the bilateral maxillary sinuses and multiple ethmoid air cells. No acute skull fracture. IMPRESSION: 1. No acute intracranial disease. 2. Areas of white matter low attenuation are nonspecific but likely reflect sequelae of mild chronic small vessel ischemic changes. Dictated by Len Quezada MD @ 11/17/2017 2:40:25 PM Please note that all CT scans at this facility use dose modulation, iterative reconstruction, and/or weight-based dosing when appropriate to reduce radiation dose to as low as reasonably achievable. Dictated by: Len Quezada MD @ 11/17/2017 14:40:30 (Electronic Signature) Report Signed by Proxy. [facility]Jesus
--- NOTE | 2017-11-18 13:42 | CR ---
EXAM DATE: 11/17/17 PATIENT'S AGE: 87 Patient: BARBARA HUNTER Facility: [place], [place] Site . Site : 1930 Study: XRay Chest [id number]/3/2018 2:27:42 PM Ordering Physician: Doctor Bird Final Report: INDICATION: Weakness. TECHNIQUE: One view of the chest. FINDINGS: Status post median sternotomy. Transvenous pacemaker leads are continuous and well positioned in the right atrium and right ventricle. Heart and mediastinum are normal in size. Pulmonary vessels are normal. Linear atelectasis at the lung bases. Lungs otherwise clear. No pleural fluid. No acute bony abnormality. IMPRESSION: Linear atelectasis at the lung bases. Dictated by Benitez Garcia MD @ Nov 17 2017 2:36PM (Electronic Signature) Report Signed by Proxy. [facility]
--- NOTE | 2017-11-18 13:43 | CR ---
EXAM DATE: 11/17/17 PATIENT'S AGE: 87 Patient: BARBARA HUNTER Facility: [place], [place] Site . Site : 1930 Study: XRay Chest [id number]/3/2018 6:15:14 PM Ordering Physician: Leslie Rosas Final Report: HISTORY: Central line placement. COMPARISON: 11/17/2017. FINDINGS: Right sided PICC line with tip in the distal SVC. Pacer wires and wires overlying the patient. Mild airspace opacity left lower lobe may represent atelectasis or infiltrate. Interstitial markings may represent mild pulmonary edema. Heart size is within normal. Dictated by Day Garcia MD @ Nov 17 2017 6:21PM (Electronic Signature) Report Signed by Proxy. [facility]
--- NOTE | 2017-11-18 15:10 | CT ---
EXAM DATE: 11/17/17 PATIENT'S AGE: 87 Patient: BARBARA HUNTER Facility: [facility] [place], [place], [place] : 1930 Study: CT Chest [id number]/3/2018 7:29:20 PM Ordering Physician: Leslie Rosas Final Report: INDICATION: Cough, septic shock, weakness TECHNIQUE: CT chest was acquired with 100 cc Isovue 370 IV contrast. COMPARISON: Chest radiograph from same date FINDINGS: Cardiovascular structures: Postoperative changes of a median sternotomy. Left- sided pacemaker lead tips are seen in the right atrium and right ventricle. Heart size is normal. Thoracic aorta and main pulmonary artery are normal in caliber. A right subclavian central venous catheter tip terminates at the distal superior vena cava. Mediastinum and sherice: No mass or adenopathy. Small hiatal hernia Lungs: There are few sub centimeter nodular opacities in the upper lobes bilaterally, best seen on image 32 series 201. Minimal linear atelectasis at both lung bases. Pleura and pericardium: No effusions. Chest wall and axilla: No mass or adenopathy. Upper abdomen: Simple cyst left hepatic lobe. Bones: No significant findings. IMPRESSION: There are a few subcentimeter nodular opacities in the upper lobes bilaterally. This could represent early or resolving infection or could represent pulmonary nodules. Recommend follow-up chest CT. Please note that all CT scans at this facility use dose modulation, iterative reconstruction, and/or weight-based dosing when appropriate to reduce radiation dose to as low as reasonably achievable. Dictated by Norma Chung MD @ Nov 17 2017 7:47PM (Electronic Signature) Report Signed by Proxy. [facility]
--- NOTE | 2017-11-18 15:11 | CT ---
EXAM DATE: 11/17/17 PATIENT'S AGE: 87 Patient: BARBARA HUNTER Facility: [place], [place] Site . Site : 1930 Study: CT Abdomen/Pelvis -11/17/2017 7:36:48 PM Ordering Physician: Leslie Rosas Final Report: INDICATION: Septic shock, generalized weakness, cough TECHNIQUE: CT abdomen and pelvis acquired with IV contrast. COMPARISON: None FINDINGS: Lower chest: Please see chest CT report. Liver: Simple cyst left hepatic lobe. There are a few subcentimeter hypodensities in the liver which are too small to accurately characterize. Spleen: Unremarkable. Pancreas: Fatty infiltration of the pancreas. Gallbladder and bile ducts: S/p cholecystectomy. Adrenal glands: 1.3 cm left adrenal gland mass. Kidneys: Simple cyst bilateral kidneys. There are subcentimeter hypodensities in both kidneys which are too small to accurately characterize. GI tract: Colonic diverticulosis without evidence for diverticulitis. Appendix is not visualized. Vascular structures: Diffuse atherosclerotic disease. Lymph nodes: 1.0 cm right iliac chain lymph node on image 116 series 301. Miscellaneous: Small fat containing inguinal hernias. No free air or significant free fluid. Pelvic Organs: Unremarkable. Bones: Unremarkable for age. IMPRESSION: No acute intra-abdominal process identified. Left adrenal gland mass. Consider adrenal CT for further evaluation if clinically indicated. Borderline right iliac chain adenopathy of unknown etiology. Colonic diverticulosis. Status post cholecystectomy. Please note that all CT scans at this facility use dose modulation, iterative reconstruction, and/or weight-based dosing when appropriate to reduce radiation dose to as low as reasonably achievable. Dictated by Norma Chung MD @ Nov 17 2017 7:57PM (Electronic Signature) Report Signed by Proxy. [facility]
[2017-11-19] MEDS: Heparin Sodium 5,000 Units/ML Vial SUBCUT SCH ×4 (00:40→20:28)
[2017-11-19] MEDS: Piperacillin/Tazobactam 3.375 GM in Sodium Chloride 0.9% 50 ML IV SCH ×5 (00:41→20:35)
[2017-11-19] MEDS: Pantoprazole 40 MG Tab.CR PO SCH ×2 (00:41→20:28)
[2017-11-19] MEDS: Simvastatin 40 MG Tab PO SCH ×2 (00:41→20:28)
[2017-11-19] MEDS: Sodium Chloride 0.9% 1,000 ML IV SCH (01:09)
--- NOTE | 2017-11-19 05:10 | PCM.PN ---
- General Info Date of Service: 11/19/17 Admission Dx/Problem (Free Text): Admission Diagnosis/Problem Admission Diagnosis/Problem UTI, Urinary tract infectious disease Subjective Update: Patient doing better. Has no complaints or concerns. - Review of Systems General: Reports: No Symptoms HEENT: Reports: No Symptoms Pulmonary: Reports: No Symptoms Cardiovascular: Reports: No Symptoms Gastrointestinal: Reports: No Symptoms Genitourinary: Reports: No Symptoms Musculoskeletal: Reports: No Symptoms Skin: Reports: No Symptoms Neurological: Reports: No Symptoms Psychiatric: Reports: No Symptoms - Patient Data Vitals - Most Recent: Last Vital Signs Temp 37.1 C 11/19/17 04:00 Pulse 71 11/17/17 16:20 Resp 21 H 11/19/17 04:00 BP 121/52 L 11/19/17 04:00 Pulse Ox 95 11/19/17 04:00 Weight - Most Recent: 79.379 kg I&O - Last 24 Hours: Intake & Output 11/18/17 11/18/17 11/19/17 14:59 22:59 06:59 Intake Total 1863 814 959 Output Total 400 500 Balance 1463 814 459 Lab Results Last 24 Hours: Laboratory Results - last 24 hr 11/18/17 11/18/17 11/18/17 Range/Units 05:29 05:29 05:29 WBC 14.47 H (4.0-11.0) K/uL RBC 4.22 L (4.50-5.90) M/uL Hgb 12.6 L (13.0-17.0) g/dL Hct 37.7 L (38.0-50.0) % MCV 89.3 (80.0-98.0) fL MCH 29.9 (27.0-32.0) pg MCHC 33.4 (31.0-37.0) g/dL RDW Std Deviation 43.7 (28.0-62.0) fl RDW Coeff of Elodia 13 (11.0-15.0) % Plt Count 176 (150-400) K/uL MPV 9.90 (7.40-12.00) fL Neut % (Auto) 88.0 H (48.0-80.0) % Lymph % (Auto) 4.6 L (16.0-40.0) % Maverick % (Auto) 7.3 (0.0-15.0) % Eos % (Auto) 0.0 (0.0-7.0) % Baso % (Auto) 0.1 (0.0-1.5) % Neut # (Auto) 12.8 H (1.4-5.7) K/uL Lymph # (Auto) 0.7 (0.6-2.4) K/uL Maverick # (Auto) 1.1 H (0.0-0.8) K/uL Eos # (Auto) 0.0 (0.0-0.7) K/uL Baso # (Auto) 0.0 (0.0-0.1) K/uL Nucleated RBC % 0.0 /100WBC Nucleated RBCs # 0 K/uL ESR 6 (0-19) mm/hr Sodium 139 (136-148) mmol/L Potassium 3.6 (3.5-5.1) mmol/L Chloride 109 H (98-107) mmol/L Carbon Dioxide 21.7 (21.0-32.0) mmol/L BUN 17 (7.0-18.0) mg/dL Creatinine 1.0 (0.8-1.3) mg/dL Est Cr Clr Drug Dosing TNP Estimated GFR (MDRD) > 60.0 ml/min Glucose 119 H (74-106) mg/dL Calcium 7.5 L (8.5-10.1) mg/dL Magnesium 1.4 L (1.5-2.0) mg/dL Total Bilirubin 0.5 (0.2-1.0) mg/dL AST 23 (15-37) IU/L ALT 22 (14-63) IU/L Alkaline Phosphatase 16 L (46-116) U/L C-Reactive Protein 15.50 H (0.00-0.90) mg/dL Total Protein 5.2 L (6.4-8.2) g/dL Albumin 2.3 L (3.4-5.0) g/dL Globulin 2.9 (2.0-3.5) g/dL Albumin/Globulin Ratio 0.8 L (1.3-2.8) Ketan Results Last 24 Hours: Microbiology 11/17/17 15:39 Aerobic Blood Culture - Preliminary Blood - Venous NO GROWTH AFTER 1 DAY Anaerobic Blood Culture - Preliminary NO GROWTH AFTER 1 DAY 11/17/17 14:48 Aerobic Blood Culture - Preliminary Blood NO GROWTH AFTER 1 DAY Anaerobic Blood Culture - Preliminary NO GROWTH AFTER 1 DAY 11/18/17 07:49 Gram Stain - Preliminary Sputum - Expectorated Med Orders - Current: Current Medications Acetaminophen (Tylenol) 650 mg PO Q4H PRN PRN Reason: Pain (Mild 1-3)/fever Albuterol/Ipratropium (Duoneb 3.0-0.5 Mg/3 Ml) 3 ml NEB Q4HRRT PRN PRN Reason: Shortness Of Breath/wheezing Docusate Sodium (Colace) 100 mg PO BID PRN PRN Reason: Constipation Heparin Sodium (Porcine) (Heparin Sodium) 5,000 units SUBCUT Q8H [facility] Last Admin: 11/19/17 03:44 Dose: 5,000 units Norepinephrine Bitartrate 4 mg (/ Sodium Chloride) 250 mls @ 7.5 mls/hr IV TITRATE [facility]; Protocol Last Titration: 11/18/17 11:47 Dose: 0 mcg/min, 0 mls/hr Sodium Chloride (Normal Saline) 1,000 mls @ 5 mls/hr IV ASDIRECTED [facility] Levofloxacin/Dextrose 750 mg/ (Premix) 150 mls @ 100 mls/hr IV Q48H [facility] Last Admin: 11/17/17 18:16 Dose: 100 mls/hr Piperacillin Sod/Tazobactam (Sod 3.375 gm/ Sodium Chloride) 50 mls @ 100 mls/ hr IV Q6H [facility] Last Admin: 11/19/17 03:43 Dose: 100 mls/hr Sodium Chloride (Normal Saline) 1,000 mls @ 75 mls/hr IV ASDIRECTED [facility] Last Admin: 11/19/17 01:09 Dose: 75 mls/hr Vancomycin HCl 1 gm/ Sodium (Chloride) 250 mls @ 250 mls/hr IV Q24H [facility] Last Admin: 11/18/17 13:37 Dose: 250 mls/hr Ondansetron HCl (Zofran Odt) 4 mg PO Q4H PRN PRN Reason: nausea, able to take PO Pantoprazole Sodium (Protonix) 40 mg PO BEDTIME [facility] Last Admin: 11/19/17 00:41 Dose: Not Given Simvastatin (Zocor) 80 mg PO BEDTIME [facility] Last Admin: 11/19/17 00:41 Dose: Not Given Vancomycin HCl (Pharmacy To Dose - Vancomycin) 1 dose .XX ASDIRECTED [facility] Discontinued Medications Acetaminophen (Tylenol) 650 mg PO NOW ONE Stop: 11/17/17 14:07 Last Admin: 11/17/17 14:34 Dose: 650 mg Fentanyl (Sublimaze) Confirm Administered Dose 100 mcg .ROUTE .STK-MED ONE Stop: 11/17/17 17:39 Last Admin: 11/17/17 17:40 Dose: 100 mcg Fentanyl (Sublimaze) 50 mcg IVPUSH ONETIME ONE Stop: 11/17/17 18:22 Last Admin: 11/17/17 19:52 Dose: Not Given Heparin Sodium (Porcine) (Heparin Sodium) 5,000 units SUBCUT Q8H [facility] Last Admin: 11/17/17 19:50 Dose: 5,000 units Hydrocortisone Sodium Succinate (Solu-Cortef) 100 mg IVPUSH ONETIME ONE Stop: 11/17/17 16:15 Last Admin: 11/17/17 16:20 Dose: 100 mg Sodium Chloride (Normal Saline) 1,000 mls @ 500 mls/hr IV STAT ONE Stop: 11/17/17 15:56 Last Admin: 11/17/17 14:00 Dose: 500 mls/hr Sodium Chloride (Normal Saline) 1,000 mls @ 999 mls/hr IV .BOLUS ONE Stop: 11/17/17 16:18 Last Admin: 11/17/17 15:19 Dose: 999 mls/hr Piperacillin Sod/Tazobactam (Sod 3.375 gm/ Sodium Chloride) 50 mls @ 100 mls/ hr IV ONETIME ONE Stop: 11/17/17 15:51 Last Admin: 11/17/17 15:47 Dose: 100 mls/hr Vancomycin HCl 1 gm/ Sodium (Chloride) 250 mls @ 166 mls/hr IV ONETIME ONE Stop: 11/17/17 16:52 Last Admin: 11/17/17 15:49 Dose: 166 mls/hr Norepinephrine Bitartrate (Norepinephr-0.9% Nacl 4 Mg/250) 4 mg in 250 mls @ 7.5 mls/hr IV TITRATE [facility]; Protocol Last Titration: 11/17/17 16:55 Dose: 6 mcg/min, 22.5 mls/hr Vancomycin HCl 1,000 mg/ (Dextrose/Water) 250 mls @ 166.667 mls/hr IV Q24H [facility] Sodium Chloride (Normal Saline) 1,000 mls @ 999 mls/hr IV ONETIME ONE Stop: 11/17/17 18:30 Last Infusion: 11/17/17 18:00 Dose: 250 mls/hr Magnesium Sulfate 2 gm/ Premix 50 mls @ 50 mls/hr IV ONETIME ONE Stop: 11/18/17 08:05 Last Admin: 11/18/17 07:24 Dose: 50 mls/hr Iopamidol (Isovue Multipack-370 (76%)) 200 ml IVPUSH ONETIME STA Stop: 11/17/17 18:55 Last Admin: 11/17/17 18:55 Dose: 100 ml Pantoprazole Sodium (Protonix Iv) 40 mg IVPUSH DAILY [facility] - Exam General: Alert, Oriented HEENT: Pupils Equal, Pupils Reactive Neck: Supple Lungs: Clear to Auscultation, Normal Respiratory Effort Cardiovascular: Regular Rate, Regular Rhythm GI/Abdominal Exam: Normal Bowel Sounds, Soft, Non-Tender, No Organomegaly, No Distention Back Exam: Normal Inspection Extremities: Normal Inspection, Normal Range of Motion, Non-Tender, No Pedal Edema, Normal Capillary Refill Skin: Warm, Dry, Intact Neurological: No New Focal Deficit Psy/Mental Status: Alert, Normal Affect, Normal Mood - Problem List Review Problem List Initiated/Reviewed/Updated: Yes - My Orders Last 24 Hours: My Active Orders 11/18/17 07:49 CULTURE SPUTUM + SMEAR [RM] Routine 11/18/17 14:00 Vancomycin Pharmacy to Dose [Pharmacy to Dose - Vancomycin] 1 dose .XX ASDIRECTED 11/18/17 21:00 Pantoprazole [ProTONIX] 40 mg PO BEDTIME Simvastatin [Zocor] 80 mg PO BEDTIME 11/19/17 05:11 CBC WITH AUTO DIFF [HEME] AM CMP [COMPREHENSIVE METABOLIC PN,CMP] [CHEM] DAILY 11/20/17 05:11 CBC WITH AUTO DIFF [HEME] AM CMP [COMPREHENSIVE METABOLIC PN,CMP] [CHEM] DAILY 11/21/17 05:11 CBC WITH AUTO DIFF [HEME] AM CMP [COMPREHENSIVE METABOLIC PN,CMP] [CHEM] DAILY 11/22/17 05:11 CBC WITH AUTO DIFF [HEME] AM CMP [COMPREHENSIVE METABOLIC PN,CMP] [CHEM] DAILY 11/23/17 05:11 CBC WITH AUTO DIFF [HEME] AM CMP [COMPREHENSIVE METABOLIC PN,CMP] [CHEM] DAILY 11/24/17 05:11 CBC WITH AUTO DIFF [HEME] AM CMP [COMPREHENSIVE METABOLIC PN,CMP] [CHEM] DAILY 11/25/17 05:11 CBC WITH AUTO DIFF [HEME] AM 11/26/17 05:11 CBC WITH AUTO DIFF [HEME] AM 11/27/17 05:11 CBC WITH AUTO DIFF [HEME] AM - Plan Plan:: 87 yo male with histroy of CAD, M.I s/p CABG & TV Pacer and HLD admitted for Septic Shock. Source likely Pneumonia. Sputum gm stain reveals gm- rods, gm+ rods and gm+ cocci in clusters #Pneumonia, suspected GNR #Septic Shock, resolved, likely secondary to Pneumonia #Acute Hypoxic Respiratory Failure, on 1L O2 #Leukocytosis, improving #Fever, resolved #Weakness, improved -SBP 90-100, MAP 64 -WBC 12.8K -Kidney function: BUN 17, Cr 1.0, GFR >60 -CXR reveals atelectasis with questionable LLL infiltrate -CT chest equivocal, reveals small nodular opacities in the upper lobes bilaterally & Minimal linear atelectasis at both lung bases. -CT abdomen-pelvis reveals borderline right iliac chain adenopathy of unknown etiology otherwise noncontributory -sputum gram stain positive for moderate gm- rods, moderate gm+ rods, moderate gm+ cocci in clusters -BC NGTD, UC normal deborah -on Zosyn, Levaquin and Vanco -received hydrocortisone 100 mg IV single dose in ED -Levophed DC yesterday, currently on IV NS @ 75 ml/hour, BP rangin 100-120/50-58 Plan: -transfer floor -Continue Zosyn, Levaquin and Vancomycin - will de-escalate pending sputum culture results -DC IVF -Duonebs PRN for SOB -F/U BC & sputum culture #PMH CAD & M.I s/p CABG & TV Pacer #HLD -on Simvastatin 80 mg QD & Atenolol at home -resume Simvastatin and hold Atenolol #CT Abnormality -CT abdomen-pelvis reveals borderline right iliac chain adenopathy of unknown etiology otherwise noncontributory -outpatient f/u with PCP DVT Prophylaxis: Heparin Diet: NPO pending imaging Code: Full GI Prophylaxis: Protonix
[2017-11-19 06:11] LABS: CHLORIDE,CL 108 mmol/L (98-107); SODIUM,NA 138 mmol/L (136-148)
[2017-11-19] MEDS: Levofloxacin/Dextrose 5%-Water 750 MG in Premix Bag 1 BAG IV SCH (16:12)
[2017-11-20] MEDS: Piperacillin/Tazobactam 3.375 GM in Sodium Chloride 0.9% 50 ML IV SCH ×2 (04:11→09:12)
[2017-11-20] MEDS: Heparin Sodium 5,000 Units/ML Vial SUBCUT SCH (04:11)
[2017-11-20 06:07] LABS: CHLORIDE,CL 108 mmol/L (98-107); SODIUM,NA 140 mmol/L (136-148)
--- NOTE | 2017-11-20 09:36 | US ---
Right lower extremity venous Doppler Clinical history: Rule out deep vein thrombosis Comparison: None. Findings: There is normal respiratory phasicity augmentation competence of absent pulsatility of the lower extremity veins all of which compress well throughout on the right. Impression: No evidence of deep vein thrombosis
--- NOTE | 2017-11-20 10:03 | PCM.DCSUM1 ---
Discharge Summary - Hospital Course Free Text/Narrative:: Admission date: 11/17/2017 Discharge date: 11/18/2017 Admission diagnosis: #1. Septic shock with unknown source of infection #2. Probable gram negative avery sepsis #3. Hypotension #4. Leukocytosis #5. Weakness #6. History of CAD, [place] s/p CABG, pacemaker, HLD #7. Acute hypoxic respiratory failure Discharge Diagnosis: #1. Septic shock - resolved #2. Probable gram negative avery pneumonia - clinically improving #3. Hypotension - resolved #4. Leukocytosis - resolved #5. Weakness - improved #6. R foot superficial dermatitis Hospital course: 87M with the above history that presented on 11/17 with weakness found to be in septic shock without a source of infection was admitted to our ICU. He was placed on broad-spectrum antibiotics, blood cultures were obtained, and was placed on levophed drip for hypotension. Required o2 supplementation. CT Chest showed bilateral opacities indicating possible early signs of infection. UA was negative for infection. Abdominal/pelvis CT was unremarkable. Sputum culture obtained which was also unremarkable, although gram stain is pending. He was transitioned to the regular floor once his vitals were stable. Antibiotics were continued, his blood cultures remained negative. The morning of discharge, he had no complaints. Labs were unremarkable. He is to f/u with his PCP [facility]. I have sent him home on 4 days of PO levaquin. - Discharge Data Discharge Date: 11/20/17 Discharge Disposition: Home, Self-Care 01 Condition: Critical - Patient Summary/Data Consults: Consultations 11/17/17 16:17 Consult to Physician [CONS] Stat - Patient Instructions Diet: Usual Diet as Tolerated Activity: As Tolerated Driving: Do Not Drive Showering/Bathing: May Shower Notify Provider of: Fever, Increased Pain, Swelling and Redness, Drainage, Nausea and/or Vomiting - Discharge Plan Prescriptions/Med Rec: Levofloxacin [Levaquin] 750 mg PO DAILY 4 Days #4 tab Home Medications: Home Meds Atenolol 25 mg PO BEDTIME 11/17/17 [History] Simvastatin [Zocor] 80 mg PO DAILY 11/17/17 [History] Levofloxacin [Levaquin] 750 mg PO DAILY 4 Days #4 tab 11/20/17 [Rx] Patient Handouts: Levofloxacin tablets, Septic Shock Referrals: [facility] [Outside] - 11/26/17 2:30 pm - Discharge Summary/Plan Comment Discharge Summary/Plan Comment: Admission date: 11/17/2017 Discharge date: 11/18/2017 Admission diagnosis: #1. Septic shock with unknown source of infection #2. Probable gram negative avery sepsis #3. Hypotension #4. Leukocytosis #5. Weakness #6. History of CAD, [place] s/p CABG, pacemaker, HLD #7. Acute hypoxic respiratory failure Discharge Diagnosis: #1. Septic shock - resolved #2. Probable gram negative avery pneumonia - clinically improving #3. Hypotension - resolved #4. Leukocytosis - resolved #5. Weakness - improved #6. R foot superficial dermatitis Hospital course: 87M with the above history that presented on 11/17 with weakness found to be in septic shock without a source of infection was admitted to our ICU. He was placed on broad-spectrum antibiotics, blood cultures were obtained, and was placed on levophed drip for hypotension. Required o2 supplementation. CT Chest showed bilateral opacities indicating possible early signs of infection. UA was negative for infection. Abdominal/pelvis CT was unremarkable. Sputum culture obtained which was also unremarkable, although gram stain is pending. He was transitioned to the regular floor once his vitals were stable. Antibiotics were continued, his blood cultures remained negative. The morning of discharge, he had no complaints. Labs were unremarkable. He is to f/u with his PCP at [facility]. I have sent him home on 4 days of PO levaquin. - Patient Data Vitals - Most Recent: Last Vital Signs Temp 36.6 C 11/20/17 07:43 Pulse 70 11/20/17 07:43 Resp 18 11/20/17 07:43 BP 150/84 H 11/20/17 07:43 Pulse Ox 94 L 11/20/17 07:43 Weight - Most Recent: 79.379 kg I&O - Last 24 hours: Intake & Output 11/19/17 11/20/17 11/20/17 22:59 06:59 14:59 Intake Total 50 650 Balance 50 650 Lab Results - Last 24 hrs: Laboratory Results - last 24 hr 11/20/17 11/20/17 Range/Units 04:50 04:50 WBC 5.57 (4.0-11.0) K/uL RBC 4.42 L (4.50-5.90) M/uL Hgb 13.1 (13.0-17.0) g/dL Hct 39.1 (38.0-50.0) % MCV 88.5 (80.0-98.0) fL MCH 29.6 (27.0-32.0) pg MCHC 33.5 (31.0-37.0) g/dL RDW Std Deviation 42.8 (28.0-62.0) fl RDW Coeff of Elodia 13 (11.0-15.0) % Plt Count 170 (150-400) K/uL MPV 9.80 (7.40-12.00) fL Neut % (Auto) 69.6 (48.0-80.0) % Lymph % (Auto) 13.5 L (16.0-40.0) % Kidder % (Auto) 13.8 (0.0-15.0) % Eos % (Auto) 2.9 (0.0-7.0) % Baso % (Auto) 0.2 (0.0-1.5) % Neut # (Auto) 3.9 (1.4-5.7) K/uL Lymph # (Auto) 0.8 (0.6-2.4) K/uL Kidder # (Auto) 0.8 (0.0-0.8) K/uL Eos # (Auto) 0.2 (0.0-0.7) K/uL Baso # (Auto) 0.0 (0.0-0.1) K/uL Nucleated RBC % 0.0 /100WBC Nucleated RBCs # 0 K/uL Sodium 140 (136-148) mmol/L Potassium 3.6 (3.5-5.1) mmol/L Chloride 108 H (98-107) mmol/L Carbon Dioxide 24.7 (21.0-32.0) mmol/L BUN 10 (7.0-18.0) mg/dL Creatinine 1.0 (0.8-1.3) mg/dL Est Cr Clr Drug Dosing 50.54 mL/min Estimated GFR (MDRD) > 60.0 ml/min Glucose 104 (74-106) mg/dL Calcium 8.1 L (8.5-10.1) mg/dL REDD Results - Last 24 hrs: Microbiology 11/18/17 07:49 Gram Stain - Final Sputum - Expectorated 11/17/17 15:39 Aerobic Blood Culture - Preliminary Blood - Venous NO GROWTH AFTER 2 DAYS Anaerobic Blood Culture - Preliminary NO GROWTH AFTER 2 DAYS 11/17/17 14:48 Aerobic Blood Culture - Preliminary Blood NO GROWTH AFTER 2 DAYS Anaerobic Blood Culture - Preliminary NO GROWTH AFTER 2 DAYS 11/17/17 15:15 Urine Culture - Final Urine, Clean Catch MIXED AMANDA <1000 CFU/ML Med Orders - Current: Current Medications Acetaminophen (Tylenol) 650 mg PO Q4H PRN PRN Reason: Pain (Mild 1-3)/fever Albuterol/Ipratropium (Duoneb 3.0-0.5 Mg/3 Ml) 3 ml NEB Q4HRRT PRN PRN Reason: Shortness Of Breath/wheezing Docusate Sodium (Colace) 100 mg PO BID PRN PRN Reason: Constipation Heparin Sodium (Porcine) (Heparin Sodium) 5,000 units SUBCUT Q8H [facility] Last Admin: 11/20/17 04:11 Dose: 5,000 units Norepinephrine Bitartrate 4 mg (/ Sodium Chloride) 250 mls @ 7.5 mls/hr IV TITRATE [facility]; Protocol Last Titration: 11/18/17 11:47 Dose: 0 mcg/min, 0 mls/hr Levofloxacin/Dextrose 750 mg/ (Premix) 150 mls @ 100 mls/hr IV Q48H [facility] Last Admin: 11/19/17 16:12 Dose: 100 mls/hr Piperacillin Sod/Tazobactam (Sod 3.375 gm/ Sodium Chloride) 50 mls @ 100 mls/ hr IV Q6H [facility] Last Admin: 11/20/17 09:12 Dose: 100 mls/hr Vancomycin HCl 1 gm/ Sodium (Chloride) 250 mls @ 250 mls/hr IV Q24H [facility] Last Admin: 11/19/17 14:04 Dose: 250 mls/hr Ondansetron HCl (Zofran Odt) 4 mg PO Q4H PRN PRN Reason: nausea, able to take PO Pantoprazole Sodium (Protonix) 40 mg PO BEDTIME [facility] Last Admin: 11/19/17 20:28 Dose: 40 mg Simvastatin (Zocor) 80 mg PO BEDTIME [facility] Last Admin: 11/19/17 20:28 Dose: 80 mg Vancomycin HCl (Pharmacy To Dose - Vancomycin) 1 dose .XX ASDIRECTED [facility] Discontinued Medications Acetaminophen (Tylenol) 650 mg PO NOW ONE Stop: 11/17/17 14:07 Last Admin: 11/17/17 14:34 Dose: 650 mg Fentanyl (Sublimaze) Confirm Administered Dose 100 mcg .ROUTE .STK-MED ONE Stop: 11/17/17 17:39 Last Admin: 11/17/17 17:40 Dose: 100 mcg Fentanyl (Sublimaze) 50 mcg IVPUSH ONETIME ONE Stop: 11/17/17 18:22 Last Admin: 11/17/17 19:52 Dose: Not Given Heparin Sodium (Porcine) (Heparin Sodium) 5,000 units SUBCUT Q8H [facility] Last Admin: 11/17/17 19:50 Dose: 5,000 units Hydrocortisone Sodium Succinate (Solu-Cortef) 100 mg IVPUSH ONETIME ONE Stop: 11/17/17 16:15 Last Admin: 11/17/17 16:20 Dose: 100 mg Sodium Chloride (Normal Saline) 1,000 mls @ 500 mls/hr IV STAT ONE Stop: 11/17/17 15:56 Last Admin: 11/17/17 14:00 Dose: 500 mls/hr Sodium Chloride (Normal Saline) 1,000 mls @ 999 mls/hr IV .BOLUS ONE Stop: 11/17/17 16:18 Last Admin: 11/17/17 15:19 Dose: 999 mls/hr Piperacillin Sod/Tazobactam (Sod 3.375 gm/ Sodium Chloride) 50 mls @ 100 mls/ hr IV ONETIME ONE Stop: 11/17/17 15:51 Last Admin: 11/17/17 15:47 Dose: 100 mls/hr Vancomycin HCl 1 gm/ Sodium (Chloride) 250 mls @ 166 mls/hr IV ONETIME ONE Stop: 11/17/17 16:52 Last Admin: 11/17/17 15:49 Dose: 166 mls/hr Norepinephrine Bitartrate (Norepinephr-0.9% Nacl 4 Mg/250) 4 mg in 250 mls @ 7.5 mls/hr IV TITRATE [facility]; Protocol Last Titration: 11/17/17 16:55 Dose: 6 mcg/min, 22.5 mls/hr Sodium Chloride (Normal Saline) 1,000 mls @ 5 mls/hr IV ASDIRECTED [facility] Vancomycin HCl 1,000 mg/ (Dextrose/Water) 250 mls @ 166.667 mls/hr IV Q24H [facility] Sodium Chloride (Normal Saline) 1,000 mls @ 75 mls/hr IV ASDIRECTED [facility] Last Infusion: 11/19/17 08:42 Dose: 15 mls/hr Sodium Chloride (Normal Saline) 1,000 mls @ 999 mls/hr IV ONETIME ONE Stop: 11/17/17 18:30 Last Infusion: 11/17/17 18:00 Dose: 250 mls/hr Magnesium Sulfate 2 gm/ Premix 50 mls @ 50 mls/hr IV ONETIME ONE Stop: 11/18/17 08:05 Last Admin: 11/18/17 07:24 Dose: 50 mls/hr Iopamidol (Isovue Multipack-370 (76%)) 200 ml IVPUSH ONETIME STA Stop: 11/17/17 18:55 Last Admin: 11/17/17 18:55 Dose: 100 ml Pantoprazole Sodium (Protonix Iv) 40 mg IVPUSH DAILY [facility]
[2017-11-20] MEDS ORDERED: Levofloxacin 250 MG Tab PO SCH (11:15)
--- NOTE | 2017-11-20 13:09 | CR ---
EXAM DATE: 11/17/17 PATIENT'S AGE: 87 Patient: BARBARA HUNTER Facility: [place], [place] Site . Site : 1930 Study: XRay Extremity Right foot [id number] 6:58:04 PM Ordering Physician: Leslie Rosas Final Report: Indication: Swelling and redness Technique: Two-view right foot Comparison: None Findings: Bones: Alignment is normal. No fractures or bone lesions. Small inferior calcaneal enthesophyte. No bone erosions. Joint spaces: Unremarkable. Soft tissues: Soft tissue swelling along the dorsum of the foot. No soft tissue gas or radiopaque foreign body. Impression: Soft tissue swelling. No acute osseous abnormality. Dictated by Norma Chung MD @ Nov 19 2017 7:15PM (Electronic Signature) Report Signed by Proxy. [id number]
== END 2017-11-20 12:45 | disposition home or self-care (01) | DRG 871 ==
LOC: MW.ED 13:46 → MW.ICU 16:12 → MW.MS 11-19 10:31
PROVIDERS: ADMIT Internal Medicine; ATTEND Internal Medicine
PROC: 03HY32Z Insertion of Monitoring Device into Upper Artery, Percutaneous Approach (ICD-10-PCS; principal; 2017-11-17)
PROC: 05H533Z Insertion of Infusion Device into Right Subclavian Vein, Percutaneous Approach (ICD-10-PCS; 2017-11-17)
DX: N30.01 Acute cystitis with hematuria (principal); R91.8 Other nonspecific abnormal finding of lung field; A41.50 Gram-negative sepsis, unspecified; R65.21 Severe sepsis with septic shock; J15.6 Pneumonia due to other Gram-negative bacteria; J96.01 Acute respiratory failure with hypoxia; I95.9 Hypotension, unspecified; D72.829 Elevated white blood cell count, unspecified; R53.1 Weakness; L30.9 Dermatitis, unspecified; I25.10 Atherosclerotic heart disease of native coronary artery without angina pectoris; I25.2 Old myocardial infarction; E78.5 Hyperlipidemia, unspecified; I10 Essential (primary) hypertension; R79.89 Other specified abnormal findings of blood chemistry; Z87.891 Personal history of nicotine dependence; Z79.899 Other long term (current) drug therapy; Z95.0 Presence of cardiac pacemaker; Z95.1 Presence of aortocoronary bypass graft
CPT/HCPCS: 36415; 36600; 70450; 71045; 80053 ×2; 81001; 83605; 84484; 85025; 86140; 87040 ×2; 87086; 96361; 96365; 99285; A9270; J2543; J3370; J7040 ×2; J7050 ×2; 36556; 36620; 71260; 71260-26; 73620-26-RT; 73620-RT; 74177; 74177-26; 80048; 82803; 83735; 85652; 87070; 87205; 93971-26-RT; 93971-RT; 96367; 96368; 96375; J1644; J1720; J1956; J3010; J3475; Q9967